=== PATIENT | male | born 1995 | race American Indian/Alaskan Native ===

== ENCOUNTER 2019-08-31 16:39 | Emergency (ER) | payer SELFPAY ==
[2019-08-31 17:05] VITALS: BP 137/75
[2019-08-31] MEDS ORDERED: IBUPROFEN 800 MG TAB PO ONE (17:51)
--- NOTE | 2019-08-31 17:52 | Emergency Department Report ---
ED Abdominal Pain HPI - General Chief Complaint: Abdominal Pain Stated Complaint: HERNIA PAIN Time Seen by Provider: 08/31/19 17:48 Source: patient Mode of arrival: Ambulatory Limitations: No Limitations - History of Present Illness Initial Comments: Patient is a 24-year-old -[place] male comes to the ER with umbilical pain. He was born with an umbilical hernia. He states he is having pain around the umbilical hernia site. Patient does have a palpable hernia but it is reducible. Patient denies nausea vomiting diarrhea. He is requesting a work note. Patient is ambulatory to the ER. Nontoxic on exam. MD Complaint: abdominal pain -: Gradual, days(s) Location: periumbilical Radiation: none Consistency: intermittent Improves With: nothing Worsens With: nothing - Related Data Allergies Allergy/AdvReac Type Severity Reaction Status Date / Time No Known Allergies Allergy Unverified 08/31/19 16:40 ED Review of Systems ROS: Stated complaint: HERNIA PAIN Other details as noted in HPI Comment: All other systems reviewed and negative ED Past Medical Hx - Past Medical History Previous Medical History?: Yes Additional medical history: umbilical hernia - Surgical History Past Surgical History?: No - Family History Family history: no significant - Social History Smoking Status: Current Every Day Smoker Substance Use Type: Alcohol ED Physical Exam - General Limitations: No Limitations General appearance: alert, in no apparent distress - Head Head exam: Present: atraumatic, normocephalic - Eye Eye exam: Present: normal appearance - ENT ENT exam: Present: mucous membranes moist - Neck Neck exam: Present: normal inspection - Respiratory Respiratory exam: Present: normal lung sounds bilaterally. Absent: respiratory distress - Cardiovascular Cardiovascular Exam: Present: regular rate, normal rhythm. Absent: systolic murmur, diastolic murmur, rubs, gallop - GI/Abdominal GI/Abdominal exam: Present: soft, normal bowel sounds, mass, other (reucable umbilical hernia). Absent: distended, tenderness, guarding, rebound, rigid, diminished bowel sounds, hyperactive bowel sounds, hypoactive bowel sounds, organomegaly, bruit, pulsatile mass, hernia - Rectal Rectal exam: Present: deferred - Extremities Exam Extremities exam: Present: normal inspection - Back Exam Back exam: Present: normal inspection - Neurological Exam Neurological exam: Present: alert, oriented X3 - Psychiatric Psychiatric exam: Present: normal affect, normal mood - Skin Skin exam: Present: warm, dry, intact, normal color. Absent: rash ED Course Vital Signs 08/31/19 17:03 Temperature 97.8 F Pulse Rate 102 H Respiratory 20 Rate Blood Pressure 137/75 O2 Sat by Pulse 99 Oximetry ED Medical Decision Making - Medical Decision Making reducable umbilical hernia Patient has been educated on the concerns with umbilical hernias. His abdomen is soft. Hernia is reducible at the current time. I have educated him and in formed him that he needs to see a general surgeon to be sure that this does not require surgical intervention. I am concerned that it will become incarcerated. Patient verbalizes understanding. Vital Signs 08/31/19 17:03 Temperature 97.8 F Pulse Rate 102 H Respiratory 20 Rate Blood Pressure 137/75 O2 Sat by Pulse 99 Oximetry - Differential Diagnosis incarc. hernia Critical care attestation.: If time is entered above; I have spent that time in minutes in the direct care of this critically ill patient, excluding procedure time. ED Disposition Clinical Impression: Umbilical hernia Disposition: DC-01 TO HOME OR SELFCARE Is pt being admited?: No Does the pt Need Aspirin: No Condition: Stable Instructions: Umbilical Hernia (ED) Additional Instructions: FOLLOW UP WITH PCP AND SURGEON WE DISCUSSED REFERRALS BELOW MOTRIN OR TYLENOL FOR PAIN [employer] TECHNIQUES WHEN AT WORK YOU MAY WANT TO WEAR A BACK BRACE TO PROTECT HERNIA FROM COMING OUT - BLACK LUMBAR SPINE DEVICE AVAILABLE AT HOME DEPOT Referrals: GABRIELA HE DO [Staff Physician] - 3-5 Days KEILA GAGE MD [Staff Physician] - 3-5 Days Forms: Work/School Release Form(ED) Time of Disposition: 17:50
== END 2019-08-31 18:15 | disposition home or self-care (01) ==
LOC: ED 16:39
DX: K42.9 Umbilical hernia without obstruction or gangrene (principal); F17.200 Nicotine dependence, unspecified, uncomplicated
CPT/HCPCS: 99282